=== PATIENT | male | born 1990 ===

== ENCOUNTER 2021-12-12 09:06 | Emergency (ER) | payer SELFPAY ==
[2021-12-12] MEDS ORDERED: SODIUM CHLORIDE 0.9% 1000 ML 1,000 ML IV ONE ×2 (09:51→12:14)
[2021-12-12] MEDS ORDERED: ACETAMINOPHEN 500 MG TAB PO ONE (09:52)
--- NOTE | 2021-12-12 10:13 | Emergency Department Report ---
ED Fever HPI - General Chief Complaint: Fever Stated Complaint: FEVER/SOB/HEADACHE/BODY ACHE PUI?: Yes Time Seen by Provider: 12/12/21 09:52 Source: patient Exam Limitations: no limitations - History of Present Illness Initial Comments: 31 yo male comes to ER with chills and general malaise x 2 days. The only other symptom is a sore throat. Pt found to have fever in triage. Denies cough/n/v/d/abd pain/dysuria; no headache/light sensitivity / nuchal rigidity Is not immunized for covid19 no known ill contacts Timing/Duration: other (2 d) Fever Severity/Quality: subjective Associated Symptoms: diaphoresis, sore throat. denies: denies symptoms, abdominal pain, chest pain, confusion, cough, headache, muscle aches, nausea/vomiting, rash, shortness of breath, stiff neck, syncope, weakness, other ED Review of Systems ROS: Stated complaint: FEVER/SOB/HEADACHE/BODY ACHE Other details as noted in HPI Comment: All other systems reviewed and negative ED Past Medical Hx - Past Medical History Previous Medical History?: No - Surgical History Past Surgical History?: No - Family History Family history: no significant - Social History Smoking Status: Never Smoker Substance Use Type: Alcohol - Medications Home Medications: Home Medications Medication Instructions Recorded Confirmed Last Taken Type Azithromycin [Zithromax Z-JYOTHI] 250 mg PO DAILY #6 tablet 12/12/21 Unknown Rx ED Physical Exam - General Limitations: No Limitations General appearance: alert, in no apparent distress - Head Head exam: Present: atraumatic, normocephalic - Eye Eye exam: Present: normal appearance - ENT ENT exam: Present: mucous membranes moist - Neck Neck exam: Present: normal inspection - Respiratory Respiratory exam: Present: normal lung sounds bilaterally. Absent: respiratory distress - Cardiovascular Cardiovascular Exam: Present: regular rate, normal rhythm. Absent: systolic murmur, diastolic murmur, rubs, gallop - GI/Abdominal GI/Abdominal exam: Present: soft, normal bowel sounds - Rectal Rectal exam: Present: deferred - Extremities Exam Extremities exam: Present: normal inspection - Back Exam Back exam: Present: normal inspection - Neurological Exam Neurological exam: Present: alert, oriented X3 - Psychiatric Psychiatric exam: Present: normal affect, normal mood - Skin Skin exam: Present: warm, dry, intact, normal color. Absent: rash ED Course Vital Signs 12/12/21 12/12/21 09:28 16:50 Temperature 100.8 F H 98.5 F Pulse Rate 121 H 88 Respiratory 18 16 Rate Blood Pressure 131/67 128/74 [Left] O2 Sat by Pulse 100 100 Oximetry ED Medical Decision Making - Lab Data Result diagrams: 12/12/21 10:38 12/12/21 10:38 - Radiology Data Radiology results: report reviewed, image reviewed nap - Medical Decision Making Labs 12/12/21 12/12/21 12/12/21 10:38 10:38 12:50 WBC 5.4 RBC 4.66 Hgb 13.8 Hct 41.4 MCV 89 MCH 30 MCHC 33 RDW 13.3 Plt Count 201 Sodium 137 Potassium 4.3 Chloride 101.9 Carbon Dioxide 30 Anion Gap 9 BUN 6 L Creatinine 1.1 Estimated GFR > 60 BUN/Creatinine Ratio 5 Glucose 72 L POC Glucose 127 H Calcium 8.7 Total Bilirubin 0.20 AST 25 ALT 20 Alkaline Phosphatase 72 Total Protein 7.1 Albumin 3.7 L Albumin/Globulin Ratio 1.1 Lipase 25 Urine Color Urine Turbidity Urine pH Ur Specific [place] Urine Protein Urine Glucose (UA) Urine Ketones Urine Blood Urine Nitrite Ur Reducing Substances Urine Bilirubin Urine Ictotest Urine Urobilinogen Ur Leukocyte Esterase Urine WBC (Auto) Urine RBC (Auto) U Epithel Cells (Auto) 12/12/21 15:37 WBC RBC Hgb Hct MCV MCH MCHC RDW Plt Count Sodium Potassium Chloride Carbon Dioxide Anion Gap BUN Creatinine Estimated GFR BUN/Creatinine Ratio Glucose POC Glucose Calcium Total Bilirubin AST ALT Alkaline Phosphatase Total Protein Albumin Albumin/Globulin Ratio Lipase Urine Color Straw Urine Turbidity Clear Urine pH 6.5 Ur Specific [place] 1.005 Urine Protein <15 mg/dl Urine Glucose (UA) Negative Urine Ketones Negative Urine Blood Negative Urine Nitrite Negative Ur Reducing Substances Not Reportable Urine Bilirubin Negative Urine Ictotest Not Reportable Urine Urobilinogen < 2.0 Ur Leukocyte Esterase Negative Urine WBC (Auto) 1.0 Urine RBC (Auto) < 1.0 U Epithel Cells (Auto) 1.0 Vital Signs 12/12/21 09:28 Temperature 100.8 F H Pulse Rate 121 H Respiratory 18 Rate Blood Pressure 131/67 [Left] O2 Sat by Pulse 100 Oximetry medicated with tylenol for fever- taking po with out difficulty ua noted WBC noted xray nap 2L NS while in ER throat mild redness; no abscess; lungs clear; no sinus tenderness; TM normal lungs CTA abd snt; no cva tenderness denies testicular pain; no discharge on dc exam pt is ambulatory, taking po, in nad; asking to d/c presumed URI/pharyngitis pt educated on symptom management and treatment and importance of follow up if not feeling better in 48 hours. he is taking po VS per provider HR 80, BP 130/70; temp 37.5 - Differential Diagnosis ro uri/abd infection/uti/pylo/covid infection Critical care attestation.: If time is entered above; I have spent that time in minutes in the direct care of this critically ill patient, excluding procedure time. ED Disposition Clinical Impression: Fever, Pharyngitis Disposition: 01 HOME / SELF CARE / HOMELESS Is pt being admited?: No Does the pt Need Aspirin: No Condition: Stable Instructions: Fever, Adult Additional Instructions: meds as ordered today follow up with pcp in 48 hours for recheck referral below stay well hydrated with water motrin or tylenol for pain or fever diet and activity as tolerated Prescriptions: Azithromycin [Zithromax Z-JYOTHI] 250 mg PO DAILY #6 tablet Referrals: JEANNE NG MD [Staff Physician] - 3-5 Days Forms: Work/School Release Form(ED) Time of Disposition: 11:12
--- NOTE | 2021-12-12 10:24 | XRay Report ---
CHEST 2 VIEWS INDICATION / CLINICAL INFORMATION: fever STUDY TIME: 1009 COMPARISON: None available. FINDINGS: SUPPORT DEVICES: None. HEART / MEDIASTINUM: No significant abnormality. LUNGS / PLEURA: Lateral mid to lower chest is excluded from the PA view. Visualized portions of the l rigoberto handley are clear. No pneumothorax. ADDITIONAL FINDINGS: No significant additional findings. Signer Name: Sam Bhatti MD Signed: 12/12/2021 10:20 AM Workstation Name: [id number]
[2021-12-12 11:29] LABS: Hematocrit 41.4 % (35.5-45.6); Hemoglobin 13.8 gm/dl (11.8-15.2); Mean Corpuscular HGB Conc 33 % (32-34); Mean Corpuscular Volume 89 fl (84-94); Platelet Count 201 K/mm3 (140-440); Red Blood Count 4.66 M/mm3 (3.65-5.03); Red Cell Distribution Width 13.3 % (13.2-15.2)
[2021-12-12 11:50] LABS: Alanine Aminotransferase 20 units/L (7-56); Albumin 3.7 g/dL (3.9-5); BUN/Creatinine Ratio 5; Blood Urea Nitrogen 6 mg/dL (9-20); Calcium 8.7 mg/dL (8.4-10.2); Hemolysis Index 12
[2021-12-12] MEDS ORDERED: DEXTROSE 50% IN WATER (25GM) 50 ML SYRINGE IV ONE (11:53)
[2021-12-12 16:03] LABS: RBC,Urine < 1.0 /HPF (0.0-6.0)
[2021-12-12 16:08] LABS: Color,Urine Straw (Yellow)
[2021-12-12 16:09] LABS: Bilirubin,Urine Negative (Negative); Blood,Urine Negative (Negative); PH,Urine 6.5 (5.0-7.0); Protein,Urine <15 mg/dL mg/dL (Negative); Urobilinogen,Urine < 2.0 mg/dL (<2.0)
[2021-12-12 16:53] VITALS: BP 128/74
== END 2021-12-12 16:54 | disposition home or self-care (01) ==
LOC: ED 09:06
DX: J02.9 Acute pharyngitis, unspecified (principal); Z72.89 Other problems related to lifestyle; Z88.0 Allergy status to penicillin
CPT/HCPCS: 36415; 71046; 80053; 81001; 82962; 83690; 85027; 96360; 96361; 99284; J3490; J7030